=== PATIENT | female | born 1965 | race Caucasian/White ===

== ENCOUNTER 2022-11-08 13:29 | Emergency (ER) | payer MEDICARE, MEDICAID, SELFPAY ==
--- NOTE | ~2022-11-08 | XR_ITS ---
EXAMINATION: XR chest 2V DATE: 11/08/2022 14:31 INDICATION: Chest pain and shortness of breath TECHNIQUE: PA and lateral views of the chest are obtained. COMPARISON: None available FINDINGS: The lungs are free of acute opacities. No pleural effusion or pneumothorax. The cardiomedia stinal silhouette is normal. There is moderate thoracic spondylosis. Calcified pulmonary nodules and calcified left hilar lymph nodes are consistent with old granulomatous disease. Surgical clips in the right upper quadrant are likely from prior cholecystectomy. IMPRESSION: 1. No acute cardiopulmonary abnormality. Reviewed, dictated and finalized at location [facility].
--- NOTE | ~2022-11-08 | CT_ITS ---
EXAMINATION: CT brain wo con DATE: 11/08/2022 17:06 INDICATION: Headache TECHNIQUE: Computed tomography (CT) of the head was performed without intravenous contrast. The mA wa s adjusted according to patient size. Iterative reconstruction technique was employed. Exam dose: 60 5.33 mGy-cm total exam DLP. COMPARISON: None FINDINGS: No intracranial mass lesion or hemorrhage or cerebrovascular accident. No midline shift or mass effect. Normal ventricular size. Normal izquierdo-white matter differentiation. No subdural or epidur al hematoma. No evidence of skull fracture or bone destruction. Included paranasal sinuses and mastoid air cells a re normally developed and aerated. IMPRESSION: Negative Reviewed, dictated and finalized at [facility]. Reviewed, dictated and finalized at location [facility]. IMPRESSION: Negative
[2022-11-08 14:03] VITALS: BP 185/106; PULSE 63; RESP 18; TEMP 36.4; O2SAT 100
--- NOTE | 2022-11-08 14:07 | ECG_ITS ---
Measurements Intervals [place] Rate: 61 P: 26 SC: 171 QRS: 27 QRSD: 81 T: 52 QT: 419 QTc: 424 Interpretive Statements SINUS RHYTHM NO PREVIOUS ECG AVAILABLE FOR COMPARISON Electronically Signed On 11-08-2022 14:25:27 CDT by Maurice Maurer M.D.
[2022-11-08 14:24] LABS: Basophils Percent Auto 0.3 % (0.2-1.2); Eosinophils Absolute Auto 0.1 K/mm3 (0-0.3); Eosinophils Percent Auto 0.7 % (0-4.4); Hematocrit 40.9 % (37.0-47.0); Hemoglobin 14.2 g/dL (12.0-15.0); Immature Granulocyte Absolute 0.03 K/mm3 (0.00-0.031); Immature Granulocyte Percent A 0.3 % (0-0.5); Lymphocytes Absolute Auto 1.93 K/mm3 (0.9-3.2); Lymphocytes Percent Auto 21.5 % (18.3-44.2); Mean Corpuscular HGB Conc 34.7 g/dl (32-36); Mean Corpuscular Hemoglobin 34.5 pg (26-34); Mean Corpuscular Volume 99.5 fl (80-100); Mean Platelet Volume 10.2 fl (7.4-10.4); Monocytes Absolute Auto 0.4 K/mm3 (0.1-0.6); Monocytes Percent Auto 4.8 % (2.6-8.5); Neutrophils Absolute Auto 6.5 K/mm3 (1.3-6.7); Neutrophils Percent Auto 72.4 % (45.5-73.1); Platelet Count Result 304 k/mm3 (150-375); Red Blood Count 4.11 M/mm3 (4.2-5.4); Red Cell Distribution Width 12.4 % (11.5-14.5)
[2022-11-08 14:30] LABS: Alanine Aminotransferase 19 U/L (6-35); Albumin Level 4.7 g/dL (3.5-5.1); Alkaline Phosphatase 125 U/L (38-126); Anion Gap 9 mmol/L (8-16); Aspartate Amino Transferase 27 U/L (14-36); Bilirubin,Total 0.8 mg/dL (0.2-1.3); Blood Urea Nitrogen 6 mg/dL (7-17); Calcium 9.5 mg/dL (8.4-10.2); Carbon Dioxide 26 mmol/L (22-30); Chloride 96 mmol/L (98-107); Estimated Glomerular Filt Rate > 60; Glucose 122 mg/dL (65-110); Lipase 84 U/L (23-300); Potassium 3.9 mmol/L (3.4-5.0); Sodium 131 mmol/L (137-145)
[2022-11-08 14:32] LABS: Prothrombin Time 12.4 Seconds (11.1-14.7)
[2022-11-08 14:33] LABS: Partial Thromboplastin Time 27.8 SECONDS (22.3-36.8)
[2022-11-08 14:41] LABS: Troponin I < 0.012 ng/mL (0.000-0.034)
[2022-11-08 16:55] VITALS: BP 143/93; PULSE 66; RESP 20; O2SAT 97
[2022-11-08] MEDS: hydrALAZINE HCL 20 MG/ML VIAL 10 MG IV PUSH (17:14)
[2022-11-08] MEDS: SODIUM CHLORIDE 0.9% IV 1,000 ML 999 ML IV CONT (17:32)
[2022-11-08] MEDS: ONDANSETRON INJ 4 MG/2 ML VIAL IV PUSH (17:33)
[2022-11-08 17:35] VITALS: BP 127/83; PULSE 73; RESP 17; O2SAT 100
[2022-11-08 17:45] LABS: Troponin I < 0.012 ng/mL (0.000-0.034)
[2022-11-08] MEDS: rOPINIRole HCL 0.125 MG TABLET PO (18:53)
[2022-11-08] MEDS: LORazepam INJ (*CRX) 2 MG/ML VIAL 1 MG IV PUSH (18:55)
[2022-11-08 18:59] VITALS: BP 163/99; PULSE 63; PULSE 64; RESP 14; O2SAT 98
--- NOTE | 2022-11-08 19:02 | ED.GENADULT ---
HPI - General Adult General Chief complaint: Recheck/Abnormal Lab/Rx Stated complaint: high BP Time Seen by Provider: 11/08/22 16:45 History of Present Illness HPI narrative: 57-year-old female presented the emergency department for evaluation of high blood pressure. Patient reports that her psychiatric medications were changed approximately 6 weeks ago and she feels she has been having worsening anxiety. Patient was tearful in the ED because she was concerned due to her her nasal congestion and being unable to breathe through her nose. Patient denied any headache or vision changes at time of exam. Patient was was also complaining of increased restlessness of her legs. Related Data Allergies Allergy/AdvReac Type Severity Reaction Status Date / Time chlorzoxazone Allergy Intermediate HIVES AND Verified 11/08/22 16:56 ITCHING Cat Dander Allergy Severe ITCHING Uncoded 11/08/22 16:56 ALL OVER, SNEEZING, FACIAL SWELLING Common Ragweed Allergy Severe FACIAL Uncoded 11/08/22 16:56 SWELLING, SNEEZING [place] Allergy Severe FACIAL Uncoded 11/08/22 16:56 SWELLING, SNEEZING Horse Dander Allergy Severe ITCHING, Uncoded 11/08/22 16:56 FACIAL SWELLING, SNEEZING Molds and Smuts Allergy Severe FACIAL Uncoded 11/08/22 16:56 SWELLING, SNEEZING Review of Systems Review of Systems: All systems reviewed & are unremarkable except as noted in HPI and below Exam Narrative: APPEARANCE: Well appearing, no pain, no distress, well-nourished. HEAD: normocephalic, atraumatic. EYES: PERRLA/EOMI, conjunctivae clear. NOSE: Normal no drainage NECK: Supple. No adenopathy, no masses. RESPIRATORY: Airway patent, respirations nonlabored. Clear to auscultation bilaterally, no rales, rhonchi, wheezing. CARDIOVASCULAR: Regular rate and rhythm without murmurs rubs or gallops. ABDOMINAL: Soft, nontender, nondistended, normal bowel sounds MUSCULOSKELETAL: Moves all extremities. Strength/ROM intact, No edema, No calf tenderness. NEURO: Alert. Cranial nerves II through XII intact. SKIN: Warm, dry. Normal Color Course Course Emergency Course: 57-year-old female presented the ED for evaluation of high blood pressure and associated headache. Patient reports she was pain-free during exam. Patient's head CT was negative for acute intracranial normality. Patient's blood pressure did improve with treatment with both IV hydralazine and IV Ativan for her anxiety. Patient was updated the results of her work-up. Patient was afebrile with no leukocytosis patient's CMP is similar to her baseline. Chest x-ray showed no acute cardiopulmonary abnormality. Patient was comfortable with the plan for discharge and close follow-up. Patient was encouraged to have close follow-up with her primary care physician in order to have her anxiety and psychiatric medications adjusted. Patient was also advised that she may need to have her blood pressure medications adjusted. All questions concerns were addressed. Vital Signs Vital signs: Vital Signs Temperature 97.5 F L 11/08/22 14:03 Pulse Rate 63 11/08/22 14:03 Respiratory Rate 18 11/08/22 14:03 Blood Pressure 185/106 H 11/08/22 14:03 Pulse Oximetry 100 11/08/22 14:03 Oxygen Delivery Room Air 11/08/22 14:03 Temperature 97.5 F L 11/08/22 14:03 Pulse Rate 63 11/08/22 18:59 Respiratory Rate 14 11/08/22 18:59 Blood Pressure 163/99 H 11/08/22 18:59 Pulse Oximetry 98 11/08/22 18:59 Oxygen Delivery Room Air 11/08/22 14:03 Medical Decision Making Vital Signs Vital Signs: Vital Signs Temperature 97.5 F L 11/08/22 14:03 Pulse Rate 63 11/08/22 14:03 Respiratory Rate 18 11/08/22 14:03 Blood Pressure 185/106 H 11/08/22 14:03 Pulse Oximetry 100 11/08/22 14:03 Oxygen Delivery Room Air 11/08/22 14:03 Temperature 97.5 F L 11/08/22 14:03 Pulse Rate 63 11/08/22 18:59 Respiratory Rate 14 11/08/22 18
== END 2022-11-08 19:55 | disposition home or self-care (01) ==
PROVIDERS: Preventive Medicine Aerospace Medicine; Emergency Provider Emergency Medicine
DX: I10 Essential (primary) hypertension (principal); F41.9 Anxiety disorder, unspecified
CPT/HCPCS: 36415; 70450; 71046; 80053; 83690; 84484; 85025; 85610; 85730; 93005; 96361; 96374; 96375; 99284; A9270; J0360; J2060; J2405; J7030

== ENCOUNTER 2022-11-23 07:30 | Emergency (ER) | payer MEDICARE, MEDICAID, SELFPAY ==
--- NOTE | ~2022-11-23 | XR_ITS ---
EXAMINATION: XR chest 1V portable 11/23/2022 10:19 INDICATION: Lower extremity swelling PROCEDURE: AP portable chest COMPARISON: 11/08/2022 FINDINGS: The lungs are clear. The cardiomediastinal silhouette is within normal limits. There are no pleural effusions. There is no pneumothorax suspected. There are calcified left hilar lymph node s consistent with chronic granulomatous disease. IMPRESSION: 1: NO ACUTE CARDIOPULMONARY DISEASE. Reviewed, dictated and finalized at location A.
[2022-11-23 07:34] VITALS: BP 167/92; PULSE 77; RESP 16; TEMP 37; O2SAT 98
[2022-11-23 07:46] VITALS: O2SAT 98
[2022-11-23 08:00] VITALS: BP 128/79; PULSE 74; RESP 18; O2SAT 98
[2022-11-23] MEDS: diphenhydrAMINE HCl CAP 25 MG CAPSULE PO (08:41)
[2022-11-23] MEDS: METOCLOPRAMIDE HCL INJ 10 MG/2 ML VIAL IM (08:41)
[2022-11-23 08:45] VITALS: BP 134/88; PULSE 66; RESP 18; O2SAT 97
--- NOTE | 2022-11-23 08:50 | ED.EXTPRO ---
HPI - Extremity Problem General Chief complaint: Extremity Problem,Nontraumatic Stated complaint: ankle swelling Time Seen by Provider: 11/23/22 07:36 History of Present Illness HPI Narrative: Patient reports last few days she has noticed some swelling to bilateral ankles, she does admit that she has been drinking a lot more sugar and sodas lately than usual, no tenderness to legs or history of DVTs. She states that she has also been noticing a lot of itching and discharge to bilateral eyes, she is already on multiple allergy medications and he is going to be getting allergy shots soon. No fevers or chills. Also reports that she has a history of migraines, and has been dealing with migraines for the last 3 to 4 days and would like a migraine shot. Also reports that she lost her CPAP mask during the move so has been having difficulty breathing at night. Related Data Allergies Allergy/AdvReac Type Severity Reaction Status Date / Time chlorzoxazone Allergy Intermediate HIVES AND Verified 11/23/22 07:51 ITCHING Cat Dander Allergy Severe ITCHING Uncoded 11/23/22 07:51 ALL OVER, SNEEZING, FACIAL SWELLING Common Ragweed Allergy Severe FACIAL Uncoded 11/23/22 07:51 SWELLING, SNEEZING [place] Allergy Severe FACIAL Uncoded 11/23/22 07:51 SWELLING, SNEEZING Horse Dander Allergy Severe ITCHING, Uncoded 11/23/22 07:51 FACIAL SWELLING, SNEEZING Molds and Smuts Allergy Severe FACIAL Uncoded 11/23/22 07:51 SWELLING, SNEEZING Review of Systems Review of Systems: CONST: No fever. HEENT: No sore throat C/V: No chest pain RESP: No cough GI: Reports abdominal pain, nausea, vomiting[, diarrhea] : No dysuria. M/S: No joint pain. SKIN: No rash. NEURO: [Headache without focal numbness or weakness] PSYCH: [No depression] FOR[facility]LY [facility] Past Medical History Medical History (Updated 11/23/22 @ 11:43 by Sania Landry MD) Allergies Migraines Exam Narrative: EXAMINATION OF ORGAN SYSTEMS/BODY AREAS: Constitutional: Vital signs per nursing GENERAL:[No acute distress, non-toxic appearing.] HEAD: Normal with no signs of head trauma. EYES: EOMI, conjunctiva normal ENT: Hearing grossly intact LUNGS: Nonlabored breathing. HEART: [Regular rate and rhythm] ABD: [Soft], [nontender to palpation] EXT: Normal range of motion, negative Homans sign, no swelling in either leg, some mild swelling bilateral ankles/foot, no skin changes SKIN: [No rashes or lesions.] NEURO: [Alert and oriented x 3. No gross focal sensory or strength deficits.] PSYCH: Normal affect Course Vital Signs Vital signs: Vital Signs Temperature 98.6 F 11/23/22 07:34 Pulse Rate 77 11/23/22 07:34 Respiratory Rate 16 11/23/22 07:34 Blood Pressure 167/92 H 11/23/22 07:34 Pulse Oximetry 98 11/23/22 07:34 Oxygen Delivery Room Air 11/23/22 07:34 Temperature 98.6 F 11/23/22 07:34 Pulse Rate 88 11/23/22 11:51 Respiratory Rate 16 11/23/22 11:51 Blood Pressure 130/86 11/23/22 11:51 Pulse Oximetry 98 11/23/22 11:51 Oxygen Delivery Room Air 11/23/22 07:46 MDM - Extremity (Nontraumatic) MDM Narrative Medical decision making narrative: 57-year-old female presenting with bilateral lower extremity edema, vital signs stable also endorses headache that feels like her usual headache, some tinnitus that feels like her usual tinnitus, she has bad allergies and sees her doctor for this and was worried because she has had itching in both eyes and she thought she had some goopy discharge. Vital signs normal, normal neurologic exam here, does have some mild bilateral lower extremity pedal edema but otherwise well-appearing here. Migraine cocktail started here, basic work-up obtained and notable for very mildly elevated BNP, however no signs of cardiomegaly on chest x-ray nor signs of volume overload, I suspect more likely dependent edema, possibly from increased soda or salt intake, shannen
[2022-11-23 09:44] LABS: Basophils Percent Auto 0.4 % (0.2-1.2); Eosinophils Absolute Auto 0.2 K/mm3 (0-0.3); Eosinophils Percent Auto 2.7 % (0-4.4); Hematocrit 38.7 % (37.0-47.0); Hemoglobin 12.7 g/dL (12.0-15.0); Immature Granulocyte Absolute 0.02 K/mm3 (0.00-0.031); Immature Granulocyte Percent A 0.2 % (0-0.5); Lymphocytes Absolute Auto 1.55 K/mm3 (0.9-3.2); Lymphocytes Percent Auto 18.9 % (18.3-44.2); Mean Corpuscular HGB Conc 32.8 g/dl (32-36); Mean Corpuscular Hemoglobin 34.8 pg (26-34); Mean Platelet Volume 10.4 fl (7.4-10.4); Monocytes Absolute Auto 0.5 K/mm3 (0.1-0.6); Monocytes Percent Auto 5.7 % (2.6-8.5); Neutrophils Absolute Auto 5.9 K/mm3 (1.3-6.7); Neutrophils Percent Auto 72.1 % (45.5-73.1); Platelet Count Result 270 k/mm3 (150-375); Red Blood Count 3.65 M/mm3 (4.2-5.4); Red Cell Distribution Width 13.1 % (11.5-14.5); White Blood Count 8.2 K/mm3 (4.5-10.0)
[2022-11-23 09:58] LABS: Alanine Aminotransferase 48 U/L (6-35); Albumin Level 4.3 g/dL (3.5-5.1); Alkaline Phosphatase 111 U/L (38-126); Anion Gap 6 mmol/L (8-16); Aspartate Amino Transferase 34 U/L (14-36); Bilirubin,Total 0.8 mg/dL (0.2-1.3); Blood Urea Nitrogen 10 mg/dL (7-17); Calcium 8.8 mg/dL (8.4-10.2); Carbon Dioxide 29 mmol/L (22-30); Chloride 104 mmol/L (98-107); Estimated CRCL calculation 77 ml/min; Estimated Glomerular Filt Rate > 60; Glucose 116 mg/dL (65-110); Potassium 4.6 mmol/L (3.4-5.0); Sodium 139 mmol/L (137-145)
[2022-11-23 10:03] VITALS: BP 133/89; PULSE 80; RESP 18; O2SAT 95
[2022-11-23 10:05] LABS: NT Pro B Type Natriuretic Pept 559 pg/mL (19.9-100)
[2022-11-23 11:51] VITALS: BP 130/86; PULSE 88; RESP 16; O2SAT 98
== END 2022-11-23 11:51 | disposition home or self-care (01) ==
PROVIDERS: Emergency Provider Emergency Medicine; PCP Family Medicine
DX: R60.0 Localized edema (principal); H93.19 Tinnitus, unspecified ear; R51.9 Headache, unspecified
CPT/HCPCS: 36415; 71045; 80053; 83880; 85025; 96372; 99283; A9270; J2765